=== PATIENT | female | born 1955 | race Two or more races ===

== ENCOUNTER 2019-01-02 10:43 | Inpatient (IN) | payer BC ==
[~2019-01-02] VITALS: Ht 152.4 cm; Wt 88.9 kg
[2019-01-20] MEDS ORDERED: LISINOPRIL10 MG PO (10:51)
[2019-01-20] MEDS ORDERED: SIMVASTATIN40 MG PO (10:52)
[2019-01-20] MEDS ORDERED: GABAPENTIN400 MG PO (10:52)
== END 2019-01-29 10:25 | disposition home or self-care (01) | DRG 331 ==
LOC: O/R 01-27 06:19 → SURH 01-27 06:19
PROVIDERS: ADMIT Colon & Rectal Surgery
PROC: 07TB4ZZ Resection of Mesenteric Lymphatic, Percutaneous Endoscopic Approach (ICD-10-PCS; 2019-01-27)
PROC: 0DTU4ZZ Resection of Omentum, Percutaneous Endoscopic Approach (ICD-10-PCS; 2019-01-27)
PROC: 0DTK4ZZ Resection of Ascending Colon, Percutaneous Endoscopic Approach (ICD-10-PCS; principal; 2019-01-27 14:00)
DX: D12.2 Benign neoplasm of ascending colon (principal); R59.0 Localized enlarged lymph nodes; D20.1 Benign neoplasm of soft tissue of peritoneum; I10 Essential (primary) hypertension; Z86.010 Personal history of colon polyps

== ENCOUNTER 2019-06-24 09:13 | Outpatient (CLI) | payer OTHER ==
[~2019-06-24 09:13] MED LIST: GABAPENTIN400 MG PO; LISINOPRIL10 MG PO; SIMVASTATIN40 MG PO
== END 2019-06-24 09:43 | disposition home or self-care (01) ==
LOC: RAD 09:13
DX: Z12.31 Encounter for screening mammogram for malignant neoplasm of breast (principal); N60.11 Diffuse cystic mastopathy of right breast; N60.12 Diffuse cystic mastopathy of left breast; M17.0 Bilateral primary osteoarthritis of knee; M46.57 Other infective spondylopathies, lumbosacral region; M54.2 Cervicalgia; M54.6 Pain in thoracic spine; Z87.898 Personal history of other specified conditions; Z09 Encounter for follow-up examination after completed treatment for conditions other than malignant neoplasm

== ENCOUNTER 2019-06-24 10:26 | Outpatient (CLI) | payer OTHER | END 2019-06-24 10:28 | disposition home or self-care (01) | LOC: NUCLEAR 10:26 | DX: M81.0 Age-related osteoporosis without current pathological fracture (principal) ==

== ENCOUNTER → 2019-06-24 15:41 | Outpatient (CLI) | payer OTHER | END | disposition home or self-care (01) | LOC: LAB 07:57 | DX: I10 Essential (primary) hypertension (principal); E11.9 Type 2 diabetes mellitus without complications; E03.8 Other specified hypothyroidism; E78.2 Mixed hyperlipidemia; M81.0 Age-related osteoporosis without current pathological fracture ==

== ENCOUNTER → 2020-02-05 | Day surgery (SDC) | payer OTHER | END | disposition home or self-care (01) | LOC: ADM 12-22 08:45 → CIR.AMB 06:19 | DX: D12.0 Benign neoplasm of cecum (principal) ==

== ENCOUNTER 2020-03-28 12:16 | Inpatient (IN) | payer OTHER ==
[~2020-03-28] VITALS: Ht 152.4 cm; Wt 87.1 kg
[2020-05-12] MEDS ORDERED: DERMACINRX5000 UNIT PO (08:58)
[2020-05-18] MEDS ORDERED: LISINOPRIL10 MG PO (11:26)
[2020-05-18] MEDS ORDERED: SIMVASTATIN40 MG PO (11:27)
[2020-05-18] MEDS ORDERED: NEURONTIN800 MG PO (11:27)
== END 2020-05-19 14:03 | DRG 470 ==
LOC: O/R 05-17 05:55 → SURG 05-17 05:55 → O/R 05-17 07:00 → SURG 05-17 11:19
PROVIDERS: ADMIT Orthopaedic Surgery; ATTEND Orthopaedic Surgery
PROC: 0SRD0J9 Replacement of Left Knee Joint with Synthetic Substitute, Cemented, Open Approach (ICD-10-PCS; principal; 2020-05-17 07:00)
DX: M17.12 Unilateral primary osteoarthritis, left knee (principal); D64.9 Anemia, unspecified; I10 Essential (primary) hypertension; M79.7 Fibromyalgia; Z20.828 Contact with and (suspected) exposure to other viral communicable diseases

== ENCOUNTER 2020-05-06 07:24 | Outpatient (CLI) | payer OTHER | END 2020-05-06 07:49 | disposition home or self-care (01) | LOC: NUCLEAR 07:24 | PROVIDERS: ATTEND Internal Medicine Cardiovascular Disease | DX: R07.89 Other chest pain (principal); R94.31 Abnormal electrocardiogram [ECG] [EKG] | CPT/HCPCS: 78452; 93017; A9500; J0153 ==

== ENCOUNTER 2020-05-30 09:07 | Outpatient (CLI) | payer OTHER ==
[~2020-05-30 09:07] MED LIST changes: +DERMACINRX5000 UNIT PO; +NEURONTIN800 MG PO
== END 2020-05-30 09:11 | disposition home or self-care (01) ==
LOC: LAB 09:07
PROVIDERS: ATTEND Internal Medicine Cardiovascular Disease
DX: D64.0 Hereditary sideroblastic anemia (principal)

== ENCOUNTER 2020-07-06 15:23 | Outpatient (CLI) | payer OTHER | END 2020-07-06 15:30 | disposition home or self-care (01) | LOC: RAD 15:23 | PROVIDERS: ATTEND Orthopaedic Surgery | DX: M25.561 Pain in right knee (principal); M25.562 Pain in left knee ==

== ENCOUNTER 2021-01-13 10:34 | Outpatient (CLI) | payer OTHER | END 2021-01-13 10:44 | disposition home or self-care (01) | LOC: RAD 10:34 | PROVIDERS: ATTEND Orthopaedic Surgery | DX: M25.561 Pain in right knee (principal); M25.562 Pain in left knee ==

== ENCOUNTER 2021-06-11 11:19 | Emergency (ER) | payer OTHER ==
[~2021-06-11] VITALS: Ht 152.4 cm; Wt 84.4 kg
[2021-06-11] MEDS ORDERED: ALLEGRA ALLERG180 MG PO (11:53)
== END 2021-06-11 12:12 | disposition home or self-care (01) ==
LOC: ER 11:19
DX: L29.8 Other pruritus (principal)

== ENCOUNTER 2021-06-22 11:25 | Outpatient (CLI) | payer OTHER ==
[~2021-06-22 11:25] MED LIST changes: +ALLEGRA ALLERG180 MG PO
== END 2021-06-22 11:34 | disposition home or self-care (01) ==
LOC: MAMO-SONO 11:25
PROVIDERS: ATTEND Internal Medicine Cardiovascular Disease
DX: R92.0 Mammographic microcalcification found on diagnostic imaging of breast (principal); Z12.31 Encounter for screening mammogram for malignant neoplasm of breast; N64.89 Other specified disorders of breast

== ENCOUNTER 2021-06-22 14:24 | Outpatient (CLI) | payer OTHER | END 2021-06-22 15:00 | disposition home or self-care (01) | LOC: NUCLEAR 14:24 | PROVIDERS: ATTEND Internal Medicine Cardiovascular Disease | DX: M81.0 Age-related osteoporosis without current pathological fracture (principal) ==

== ENCOUNTER 2021-11-08 10:25 | Outpatient (CLI) | payer OTHER | END 2021-11-08 10:31 | disposition home or self-care (01) | LOC: RAD 10:25 | PROVIDERS: ATTEND Internal Medicine Cardiovascular Disease | DX: M12.9 Arthropathy, unspecified (principal) ==

== ENCOUNTER 2021-12-12 08:25 | Outpatient (CLI) | payer OTHER | END 2021-12-12 08:33 | disposition home or self-care (01) | LOC: SONOGRAMA 08:25 | DX: R10.13 Epigastric pain (principal) ==

== ENCOUNTER 2022-01-08 07:22 | Outpatient (CLI) | payer OTHER | END 2022-01-08 07:24 | disposition home or self-care (01) | LOC: TOM 07:22 | DX: Z86.010 Personal history of colon polyps (principal) ==

== ENCOUNTER 2022-02-02 07:20 | Outpatient (CLI) | payer OTHER | END 2022-02-02 08:00 | disposition home or self-care (01) | LOC: NUCLEAR 07:20 | PROVIDERS: ATTEND Internal Medicine Cardiovascular Disease | DX: I25.10 Atherosclerotic heart disease of native coronary artery without angina pectoris (principal) | CPT/HCPCS: 78452; 93017; A9500 ==

== ENCOUNTER 2022-03-23 09:13 | Emergency (ER) | payer OTHER ==
[~2022-03-23] VITALS: Ht 152.4 cm; Wt 83.5 kg
== END 2022-03-23 09:49 | disposition home or self-care (01) ==
LOC: ER 09:13
DX: B02.9 Zoster without complications (principal); Z88.0 Allergy status to penicillin

== ENCOUNTER 2022-04-16 10:27 | Outpatient (CLI) | payer OTHER | END 2022-04-16 10:38 | disposition home or self-care (01) | LOC: RAD 10:27 | PROVIDERS: ATTEND Orthopaedic Surgery | DX: M25.561 Pain in right knee (principal) ==

== ENCOUNTER 2022-05-04 07:45 | Inpatient (IN) | payer OTHER ==
[~2022-05-04] VITALS: Ht 152.4 cm; Wt 84.8 kg
== END 2022-05-10 13:39 | DRG 470 ==
LOC: SURH 05-08 07:45 → O/R 05-08 08:31 → SURH 05-08 13:30
PROVIDERS: ADMIT Orthopaedic Surgery; ATTEND Orthopaedic Surgery
PROC: 0SRC0J9 Replacement of Right Knee Joint with Synthetic Substitute, Cemented, Open Approach (ICD-10-PCS; principal; 2022-05-08 13:30)
DX: M17.11 Unilateral primary osteoarthritis, right knee (principal); M85.661 Other cyst of bone, right lower leg; I10 Essential (primary) hypertension; Z96.653 Presence of artificial knee joint, bilateral; Z20.822 Contact with and (suspected) exposure to COVID-19

== ENCOUNTER 2022-07-17 09:47 | Outpatient (CLI) | payer OTHER | END 2022-07-17 09:48 | disposition home or self-care (01) | LOC: MAMO-SONO 09:47 | PROVIDERS: ATTEND Internal Medicine Cardiovascular Disease | DX: N63.11 Unspecified lump in the right breast, upper outer quadrant (principal); M25.561 Pain in right knee; M25.562 Pain in left knee ==

== ENCOUNTER 2022-11-16 07:42 | Outpatient (CLI) | payer OTHER | END 2022-11-16 07:44 | disposition home or self-care (01) | LOC: SONOGRAMA 07:42 | PROVIDERS: ATTEND Internal Medicine Cardiovascular Disease | DX: F71 Moderate intellectual disabilities (principal); F17.200 Nicotine dependence, unspecified, uncomplicated; E78.2 Mixed hyperlipidemia ==

== ENCOUNTER → 2022-11-16 09:39 | Outpatient (CLI) | payer OTHER | END | disposition home or self-care (01) | LOC: LAB 09:39 | PROVIDERS: ATTEND Internal Medicine Cardiovascular Disease | DX: I10 Essential (primary) hypertension (principal); E11.9 Type 2 diabetes mellitus without complications; E03.9 Hypothyroidism, unspecified; E78.2 Mixed hyperlipidemia; Z12.11 Encounter for screening for malignant neoplasm of colon ==

== ENCOUNTER 2022-12-03 10:57 | Outpatient (CLI) | payer OTHER | END 2022-12-03 11:03 | disposition home or self-care (01) | LOC: RAD 10:57 | PROVIDERS: ATTEND Internal Medicine Cardiovascular Disease | DX: M12.9 Arthropathy, unspecified (principal) ==

== ENCOUNTER → 2022-12-04 | Outpatient (CLI) | payer OTHER | END | disposition home or self-care (01) | LOC: NUCLEAR 11-27 07:00 | PROVIDERS: ATTEND Internal Medicine | DX: I25.10 Atherosclerotic heart disease of native coronary artery without angina pectoris (principal); E78.2 Mixed hyperlipidemia | CPT/HCPCS: 78452; 93017; A9500; J0153 ==

== ENCOUNTER 2022-12-10 10:37 | Outpatient (CLI) | payer OTHER | END 2022-12-10 10:44 | disposition home or self-care (01) | LOC: RAD 10:37 | PROVIDERS: ATTEND Orthopaedic Surgery | DX: R07.9 Chest pain, unspecified (principal) ==

== ENCOUNTER → 2022-12-25 08:34 | Outpatient (CLI) | payer OTHER | END | disposition home or self-care (01) | LOC: LAB 08:34 | PROVIDERS: ATTEND Internal Medicine Cardiovascular Disease | DX: M12.9 Arthropathy, unspecified (principal); M10.9 Gout, unspecified; D64.0 Hereditary sideroblastic anemia ==

== ENCOUNTER 2023-05-16 07:36 | Outpatient (CLI) | payer OTHER | END 2023-05-16 07:45 | disposition home or self-care (01) | LOC: RAD 07:36 | PROVIDERS: ATTEND Internal Medicine Cardiovascular Disease | DX: M12.9 Arthropathy, unspecified (principal); M46.48 Discitis, unspecified, sacral and sacrococcygeal region ==

== ENCOUNTER 2023-06-24 13:12 | Outpatient (CLI) | payer OTHER | END 2023-06-24 13:14 | disposition home or self-care (01) | LOC: NUCLEAR 13:12 | PROVIDERS: ATTEND Internal Medicine Cardiovascular Disease | DX: M81.0 Age-related osteoporosis without current pathological fracture (principal); E55.9 Vitamin D deficiency, unspecified ==

== ENCOUNTER → 2023-08-09 | Outpatient (CLI) | payer OTHER | END | disposition home or self-care (01) | LOC: MRI 08:52 | PROVIDERS: ATTEND Physical Medicine & Rehabilitation | DX: M54.16 Radiculopathy, lumbar region (principal); Z88.0 Allergy status to penicillin | CPT/HCPCS: 72148 ==

== ENCOUNTER 2023-09-09 10:31 | Outpatient (CLI) | payer OTHER | END 2023-09-09 10:41 | disposition home or self-care (01) | LOC: TOM 10:31 | PROVIDERS: ATTEND Internal Medicine Cardiovascular Disease | DX: R51.0 Headache with orthostatic component, not elsewhere classified (principal); Z88.0 Allergy status to penicillin ==

== ENCOUNTER → 2023-10-24 08:45 | Outpatient (CLI) | payer OTHER ==
[2023-10-24 10:30] LABS: CREATININE SERUM 0.85 mg/dL (0.55-1.02)
== END | disposition home or self-care (01) ==
LOC: LAB 08:45
PROVIDERS: ATTEND Radiology Diagnostic Radiology
DX: R10.9 Unspecified abdominal pain (principal)

== ENCOUNTER → 2023-10-25 | Outpatient (CLI) | payer OTHER | END | disposition home or self-care (01) | LOC: MRI 08:38 | DX: G44.53 Primary thunderclap headache (principal); G35 Multiple sclerosis; M54.12 Radiculopathy, cervical region | CPT/HCPCS: 70553; 72156; Q9965; 70544 ==

== ENCOUNTER 2024-12-11 09:55 | Outpatient (CLI) | payer OTHER ==
[2024-12-14 09:17] LABS: CYCLIC CITRULLINE PEPTIDE 3 units (0-19)
== END 2024-12-11 10:04 | disposition home or self-care (01) ==
LOC: LAB 09:55
DX: M06.9 Rheumatoid arthritis, unspecified (principal); M06.09 Rheumatoid arthritis without rheumatoid factor, multiple sites

== ENCOUNTER 2024-12-30 10:49 | Outpatient (CLI) | payer OTHER | END 2024-12-30 10:52 | disposition home or self-care (01) | LOC: MRI 10:49 | PROVIDERS: ATTEND Physical Medicine & Rehabilitation | DX: M79.642 Pain in left hand (principal) | CPT/HCPCS: 73218 ==

== ENCOUNTER 2025-01-01 10:36 | Outpatient (CLI) | payer OTHER | END 2025-01-01 10:38 | disposition home or self-care (01) | LOC: TOM 10:36 | PROVIDERS: ATTEND Physical Medicine & Rehabilitation | DX: M79.642 Pain in left hand (principal) ==

== ENCOUNTER 2025-02-16 09:38 | Outpatient (CLI) | payer OTHER | END 2025-02-16 09:40 | disposition home or self-care (01) | LOC: MAMO-SONO 09:38 | PROVIDERS: ATTEND Internal Medicine Cardiovascular Disease | DX: N60.11 Diffuse cystic mastopathy of right breast (principal); N60.12 Diffuse cystic mastopathy of left breast; Z12.31 Encounter for screening mammogram for malignant neoplasm of breast ==

== ENCOUNTER 2025-02-26 10:20 | Outpatient (CLI) | payer OTHER | END 2025-02-26 10:22 | disposition home or self-care (01) | LOC: RAD 10:20 | PROVIDERS: ATTEND Physical Medicine & Rehabilitation | DX: M54.2 Cervicalgia (principal); M54.59 Other low back pain; M25.551 Pain in right hip; M25.552 Pain in left hip ==

== ENCOUNTER 2025-05-20 07:27 | Outpatient (CLI) | payer OTHER | END 2025-05-20 07:29 | disposition home or self-care (01) | LOC: NUCLEAR 07:27 | PROVIDERS: ATTEND Internal Medicine Cardiovascular Disease | DX: I87.2 Venous insufficiency (chronic) (peripheral) (principal) ==

== ENCOUNTER → 2025-05-30 | Emergency (ER) | payer OTHER ==
[~2025-05-30] VITALS: Ht 152.4 cm; Wt 88.5 kg
[~2025-05-30] MED LIST changes: +FAMOTIDINE/PF 20 MG/2 ML VIAL IV STA; +KETOROLAC TROMETHAMINE 30 MG VIAL IU STA
[2025-05-30 17:23] LABS: BASO % 0.5 % (0.1-1.2); EOS # 0.12 (0.04-0.54); EOS % 1.4 % (0.7-7.0); LYMPH # 2.53 (1.18-3.74); LYMPH % 29.4 % (19.3-53.1); MEAN PLATELET VOLUME 10.40 fl (9.4-12.4); MONO # 0.47 (0.24-0.82); MONO % 5.5 % (4.7-12.5); NEUT # 5.42 (1.56-6.13); NEUT % 62.9 % (34.0-71.1); RED CELL DISTRIBUTION WIDTH 14.9 % (11.6-14.4)
[2025-05-30 18:09] LABS: ALT/SGPT 27.0 U/L (12-78); AST/SGOT 13.0 U/L (15-37); BILIRUBIN TOTAL 0.42 mg/dL (0.3-1.2); BUN CREA RATIO 14.0 (7.0-25.0); CREATININE SERUM 0.92 mg/dL (0.55-1.02); GFR 60.18; GLOBULINA 4.0 G/DL (2.4-3.5); GLUCOSE FASTING 102.0 mg/dL (65-100); OSMOLALITY SERUM 280.0 MOSM/KG (275-295)
[2025-05-30 18:22] LABS: URINE APPEARANCE Clear; URINE BILIRRUBIN Negative (NEGATIVE); URINE BLOOD Negative; URINE COLOR Dark Yellow; URINE GLUCOSE Negative (NEGATIVE); URINE KETONE Trace (NEGATIVE); URINE LEUKOCYTE Negative; URINE NITRATE Negative; URINE PROTEIN Trace (NEGATIVE); URINE UROBILINOGEN 1.0 E.U./dl
[2025-05-30 18:26] LABS: URINE BACTERIA 2344.8 uL (0.0-1933); URINE EPITHELIAL CELLS 55.5 uL (0.0-38.8); URINE RBC 13.9 uL (0.0-20.8); URINE WBC 56.6 uL (0.0-23.2)
[2025-05-30 18:36] LABS: URINE CAST 0.87 uL (0.0-1.40)
[2025-05-30 18:37] LABS: TYPE CELLS SQUAMOUS; URINE CRYSTALS MODERATE /HPF
== END | disposition home or self-care (01) ==
LOC: ER 13:32
PROVIDERS: General Practice
DX: R10.9 Unspecified abdominal pain (principal); I10 Essential (primary) hypertension; Z88.0 Allergy status to penicillin
CPT/HCPCS: 36415; 74177; 96365; 99284; J1885; J3490; Q9965

== ENCOUNTER → 2025-06-25 10:25 | Outpatient (CLI) | payer OTHER ==
[~2025-06-25 10:25] MED LIST changes: -FAMOTIDINE/PF 20 MG/2 ML VIAL IV STA; -KETOROLAC TROMETHAMINE 30 MG VIAL IU STA
== END | disposition home or self-care (01) ==
LOC: NUCLEAR 10:25
PROVIDERS: ATTEND Internal Medicine Cardiovascular Disease
DX: M81.0 Age-related osteoporosis without current pathological fracture (principal)